=== PATIENT | female | born 1955 | race Caucasian/White ===

== ENCOUNTER 2020-01-29 16:09 | Emergency (ER) | payer BC ==
[2020-01-29 17:47] LABS: Albumin 3.8 g/dL (3.4-5.0); Bilirubin Total 0.3 mg/dL (0.2-1.0); Potassium 4.1 mmol/L (3.5-5.1); Protein, Total 7.6 g/dL (6.4-8.2)
[2020-01-29 17:59] LABS: Basophils % 0.4 % (0-1.3); Hematocrit 40.2 % (36.0-45.0); Lymphocytes % 23.2 % (15.3-44.8); MPV 8.8 fL (7.6-11.3); RBC Red Blood Cell Count 4.53 M/uL (3.86-4.86)
[2020-01-29 20:34] VITALS: TEMP 98
[2020-01-29 20:39] VITALS: O2SAT 100
[2020-01-29 20:40] VITALS: BP 132/73
--- OUTSIDE RECORDS SUMMARY | 2020-01-29 20:45 | XMS REPORT | Clinical Summary ---
:1955 Author Organization [facility] Address [address] [place] [address] Care Team Providers Name Role Phone Asked, No Pcp Primary Care Provider Unavailable Allergies No Known Allergies Medications Medication Sig Dispensed Refills Start Date End Date Status nifedipine 0.2% Apply 1 60 g 0 08/08/2019 Act wilda with lidocaine 5% application 0.2-0.5 % ointment topically 2 (two) times a day. Apply generously every morning and evening. atorvastatin 0 10/28/2019 Active (LIPITOR) 10 MG tablet SYNTHROID 150 mcg 0 10/28/2019 A ctive tablet DULoxetine 0 09/02/2019 Active (CYMBALTA) 30 MG capsule cetirizine (ZyrTEC) Take 10 mg by 0 Active 10 MG tablet mouth daily. acetaminophen Take 650 mg by 0 A ctive (TYLENOL 8 HOUR) mouth every 8 650 MG 8 hr tablet (eight) hours as needed for mild pain. irbesartan-hydrochl Take 1 tablet by 0 Active orothiazide mouth daily. (AVALIDE) 150-12.5 mg per tablet irbesartan (AVAPRO) Take 150 mg by 0 11/17 Discontinued 150 MG tablet mouth nightly. 0 Active Problems Problem Noted Date Fissure, anal 01/01/2020 Anal pain 08/08/2019 Bilateral lumbar radiculopathy Idiopathic progressive polyneuropathy Encounters Date Type Specialty Care Team Description 01/12/2020 Travel 01/05/2020 Travel 12/09/2019 Telemedicine Orthopedic Surgery Inocencio Pacheco is, cervical spine (Primary Dx); MD [facility] Lumbar stenosis with neurogenic claudication 12/03/2019 Travel 11/18/2019 Hospital Encounter Radiology Inocencio Pacheco Lumbar stenosis with MD [facility] neurogenic claudication 11/18/2019 Hospital Encounter Radiology Inocencio Pacheco, cervical MD [facility] spine 11/18/2019 Office Visit Orthopedic Surgery Inocencio Pacheco is, cervical spine (Primary Dx); MD [facility] Lumbar stenosis with neurogenic claudication 11/18/2019 Travel 11/10/2019 Travel 08/22/2019 Office Visit General Surgery Alex Gastelum MD Fissure, anal (Primary Dx) 08/08/2019 Office Visit General Surgery Alex Gastelum MD Anal lin n (Primary Dx) after 01/28/2019 Family History Medical History Relation Name Comments Heart attack Brother John Abad Cancer Brother Александр Abad Heart attack Father Mor Juarez Abad Heart attack Maternal Uncle several Heart disease Mother Mikki Khanr Stroke Paternal Aunt Minda Michaela Heart attack Paternal Grandfather Andi Abad Relation Name Status Comments Brother John Abad Brother Александр Abad Father AHenry Juarez Abad Maternal Uncle several Mother Barbaraa Abad Paternal Aunt Minda Michaela Paternal Grandfather Andi Abad Social History Tobacco Use Types Packs/Day Years Used Date Former Smoker Cigarettes 2 10 Quit: 03/03/19 86 Smokeless Tobacco: Never Used Alcohol Use Drinks/Week oz/Week Comments Never Sex Assigned at Date Recorded Female 01/11/2020 6:57 PM CDT Job Start Date Occupation Industry Not on file Not on file Not on file Travel History Travel Start Travel End No recent travel history available. COVID-19 Exposure Response Date Recorded In the last month, have you been in contact with No / Unsure 01/12/2020 10:49 AM CDT someone who was confirmed or suspected to have Coronavirus / COVID-19? Last Filed Vital Signs Not on file Plan of Treatment Health Maintenance Due Date Last Done Comments CERVICAL CANCER SCREENING 1976 BREAST CANCER SCREENING 2005 COLONOSCOPY SCREENING 2005 SHINGLES VACCINES (#1) 2005 INFLUENZA VACCINE 04/03/2020 Procedures Procedure Name Priority Date/Time Associated Diagnosis Comme nts EMG Routine 01/12/2020 12:25 Lumbar stenosis with Res ults for this PM CDT neurogenic procedure are i n claudication the results section. MRI LUMBAR SPINE WO Routine 11/18/2019 12:58 Lumbar stenosis w ith Results for this CONTRAST PM CDT neurogenic procedure are i n claudication the results section. MRI CERVICAL SPINE Routine 11/18/2019 12:34 Stenosis, cervical Results for this WO CONTRAST PM CDT spine procedure are i n the results section. after 01/28/2019 Results EMG General Request (01/12/2020 12:25 PM CDT) Impressions Performed At Ms. Ramirez complains of non-radicular lumbar pain when she walks and also complains of numbness in her bilateral f eet. Ms. Ramirez denies having diabetes. Ms. Ramirez is being evaluated for lumbar radiculopathy and neuropathy. 1) Peroneal and tibial motor latencies a nd velocities are bilaterally normal with small amplitudes (adipose ti ssue on bilateral legs). 2) Peroneal and tibial F Wave responses are bilaterally normal. 3) Sural and superficial peroneal sensor y responses are bilaterally absent. 4) Bilateral H Reflex Responses are equa l with very small amplitudes. 5) Intramuscular recordings of the legs suggest very mild chronic bilateral L5 denervation. The study suggests very mild chronic hellen ateral chronic L5 radiculopathy associated with severe sensory neuropath y. Fco Duong M.D. Narrative Performed At This result has an attachment that is no t available. NERVE CONDUCTION AND ELECTROMYOGRAPHY REPORT [facility] [place], [facility]-[address]th Floor; [place], [place] [address]; Teleph one [phone] Name: Analy Ramirez Date of Procedure: January 12, 2020 Location: [facility] Sex: Female Date of : 55 Referring Physician: Inocencio Pacheco M.D. FAX: Patient is 5 4 ; 265 lbs.; RL 31.3 C; LL 30.2 C Nerve Conduction (Latencies in msec, Amplitudes uV, Distance cm, Velocity M/Sec) Right Motor Nerves Dist. Lat. Prox lat. D. amp. P. Amp . Dist. Velocity Right Peroneal EDB 4.1 12.6 1.7 1.3 34.0 40.0 Right Tibial 4.2 13.8 6.9 2.9 36.5 37.7 Right Peroneal F Wave 47.8 Right Tibial F Wave 46.8 Right Sensory Nerves Dist. Lat. Prox lat. Dist. amp. Prox Amp. Distance Velocity Right Sural absent 14.0 Right Superficial Peroneal absent 12.0 Left Motor Nerves Dist. Lat. Prox lat. D. amp. P. Amp. Dist. Velocity Left Peroneal EDB 4.7 12.9 1.4 1.1 33.0 40.0 Left Tibial 4.7 14.3 4.2 2.3 35.8 37.0 Left Peroneal F Wave 49.0 Left Tibial F Wave 54.0 Left Sensory Nerves Dist. Lat. Prox lat. Dist. a mp. Prox Amp. Distance Velocity Left Sural absent 14.0 Left Superficial Peroneal absent 12.0 Right Soleus (H Reflex Response Latency): 33.5 msec (v milagro small amplitude) Left Soleus (H Reflex Response Latency): 33.7 msec ( very small amplitudes) Electromyography (Motor Unit in mV; H=High; L=Low; P=P olyphasic; NS=Non-specific) Right Leg Fibs. Pos. Waves Fasc. Polyphasia Motor Units Recruitment Vas. Medialis wnl wnl wnl wnl wnl wnl Ant. Tibialis wnl wnl wnl 20HP wnl NS Peroneus Longus wnl wnl wnl 20HP wnl NS Gastronemius wnl wnl wnl wnl wnl wnl Ext. Dig. Brevis wnl wnl wnl 20HP wnl NS Left Leg Fibs. Pos. Waves Fasc. Polyphasia M otor Units Recruitment Vas. Medialis wnl wnl wnl wnl wnl wnl Ant. Tibialis wnl wnl wnl 20HP wnl NS Peroneus Longus wnl wnl wnl 20HP wnl NS Gastronemius wnl wnl wnl wnl wnl wnl Ext. Dig. Brevis wnl wnl wnl 20HP wnl NS MRI Lumbar Spine Wo Contrast (11/18/2019 12:58 PM CDT) Specimen Narrative Performed At EXAMINATION: MRI LUMBAR SPINE WO CONTRAS T [facility] CLINICAL HISTORY: M48.062 Spinal stenosis lumbar reg ion with neurogenic claudication, PAIN COMPARISON: None TECHNIQUE: Multiplanar multisequence nonenhanced MRI e xamination was performed of the Lumbar spine. FINDINGS: There are 5 non-rib bearing lumbar type vertebrae. No fracture. 2 mm anterolisthesis L4 on L5, degenerative. No suspiciou s osseous lesions. Modic type I endplate change at L2-3. Conus medullaris terminates at the level of L1. Evaluation of the visualized soft tissues demonstrates no mass, adenopathy or aneurysm. Axial images through the disc spaces dem onstrate the following: L1-L2: Mild facet arthropathy without significant spin al canal, subarticular zone, or neural foraminal s tenosis. L2-L3: Moderate facet arthropathy ligament flavum info lding and small disc bulge contributes to moderate left subarticular z one and spinal canal stenosis as well as mild to moderate right subar ticular zone stenosis, mild to moderate left and mild right neural foraminal stenosis. L3-L4: Mild to moderate facet arthropathy without sign ificant spinal canal, subarticular zone, or neural fora hernandez stenosis. L4-L5: Severe facet arthropathy with degenerative grad e 1 anterolisthesis contributes to moderate to severe righ t and mild to moderate left subarticular zone stenosis, mild spinal canal stenosis, mild left and [id number] right shanita ral foraminal stenosis. There is contact and potential mild compress ion of the traversing right L5 nerve root. L5-S1: Moderate facet arthropathy without significant spinal canal, subarticular zone, or neural foraminal s tenosis. IMPRESSION: 1. Multilevel degenerative changes of the lumbar spine , most notably at L2-3 and L4-5 as detailed above. [id number] Procedure Note Hm Interface, Radiology Results Incoming - 11/18/2019 1:54 PM CDT EXAMINATION: MRI LUMBAR SPINE WO CONTRAST CLINICAL HISTORY: M48.062 Spinal stenosi s lumbar region with neurogenic claudication, PAIN COMPARISON: None TECHNIQUE: Multiplanar multisequence non enhanced MRI examination was performed of the Lumbar spine. FINDINGS: There are 5 non-rib bearing lumbar type vertebrae. No fracture. 2 mm anterolisthesis L4 on L5, degenerative. No suspicious osseous lesions. Modic type I endplate change at L2-3. Conus medullaris terminates at the level of L1. Evaluation of the visualized soft tissue s demonstrates no mass, adenopathy or aneurysm. Axial images through the disc spaces dem onstrate the following: L1-L2: Mild facet arthropathy without si gnificant spinal canal, subarticular zone, or neural foraminal stenosis. L2-L3: Moderate facet arthropathy ligame nt flavum infolding and small disc bulge contributes to moderate left subarticular zone and spinal canal stenosis as well as mild to moderate right subarticular zone stenosis, mild to moderate left and mild right neural foraminal stenosis. L3-L4: Mild to moderate facet arthropath y without significant spinal canal, subarticular zone, or neural foraminal stenosis. L4-L5: Severe facet arthropathy with deg enerative grade 1 anterolisthesis contributes to moderate to severe right and mild to moderate left subarticular zone stenosis, mild spinal canal stenosis, mild left and [id number] right neural foraminal stenosis. There is contact and potential mild compression of the traversing right L5 nerve root. L5-S1: Moderate facet arthropathy withou t significant spinal canal, subarticular zone, or neural foraminal stenosis. IMPRESSION: 1. Multilevel degenerative changes of th e lumbar spine, most notably at L2-3 and L4-5 as detailed above. [id number] Performing Organization Address City/State/Zipcode Phone Number [facility] [address] [place] [address] MRI Cervical Spine Wo Contrast (11/18/2019 12:34 PM CDT) Specimen Narrative Performed At This result has an attachment that is no t available. EXAMINATION: MRI CERVICAL SPINE WO CONTRAST [facility] CLINICAL HISTORY: M48.02 Spinal stenosis cervical re gion, PAIN COMPARISON: None TECHNIQUE: Multiplanar multisequence non contrast enhanced examination was performed of the cervical spine. FINDINGS: Vertebral body heights are maintained. N o focal marrow lesions or acure edema identified. Cervical alignment is preserved with nor mal lordosis. There is no significant spondylolisthesis. The cervicomedullary junction is unremar kable. No cord signal abnormality identified. The partially imaged posterior fossa is grossly intact . No gross masses are present in the visualized preverte bral soft tissues. Axial images through the disc spaces demonstrate the f ollowing: C1-C2: There is narrowing of the atlanto axial interval with spurring. There is no significant stenosis. C2-C3: There is a shallow posterior prot rusion minimally effacing the ventral thecal sac. The foramina are patent despite mild uncovertebral arthrosis and facet disease. C3-C4: There is disc desiccation and pos terior spondylosis and mild narrowing of the thecal sac to 8.5 mm. Uncovertebral arthrosis and facet disease results in severe left foraminal narrowing. There is abutment and distortion of the exiting left C4 nerve root. Correlate for a left C4 radiculopathy. The righ t foramen is patent. C4-C5: There is disc desiccation and bro ad-based posterior protrusion with mild to moderate narrowing of the thecal sac to 7.3 mm with some abutment of the cord without significant distortion or signal change. Uncovertebral arthrosis and facet disease results in moderate severe narrowing of the right foramen with effacement of perineural fat and abutment of the nerve root. There is also mild left foraminal narrowing. Correlate for a right C5 radiculopathy to determine significance. C5-C6: There is loss of disc height with disc bulge and a broad-based posterior protrusion measuring 2 mm. There is abutment and effacement of ventral cord with AP dimension the canal at 6.2 mm consiste nt moderate severe stenosis. There is some abutment and flattening of the ventral cord. Unco vertebral arthrosis and facet disease results in mild narrowing of the bilateral foramina. C6-C7: There is anterior fusion at this level. There is posterior spondylosis with mild effacement of thecal sac without significant stenosis. Uncovertebral arthrosis and facet disease results in no significant foraminal narrowing. C7-T1: There is posterior spondylosis wi thout canal narrowing. The foramina are patent. IMPRESSION: There is multilevel spondylosis most pro minent at C5-6 above the fusion where there is moderate severe canal narrowing and some abutment and effacement of the cord without signal change. There is also severe left-sided foramina l narrowing at C3-4 and moderate severe right foraminal narrowing at C4-5. Correlate for associated radiculopathies. [id number] Procedure Note Hm Interface, Radiology Results - 11/18/2019 1:14 PM CDT EXAMINATION: MRI CERVICAL SPINE WO CONTRAST CLINICAL HISTORY: M48.02 Spinal stenosis cervical region, PAIN COMPARISON: None TECHNIQUE: Multiplanar multisequence non contrast enhanced examination was performed of the cervical spine. FINDINGS: Vertebral body heights are maintained. N o focal marrow lesions or acure edema identified. Cervical alignment is preserved with nor mal lordosis. There is no significant spondylolisthesis. The cervicomedullary junction is unremar kable. No cord signal abnormality identified. The partially imaged posterior fossa is grossly intact. No gross masses are present in the visua lized prevertebral soft tissues. Axial images through the disc spaces dem onstrate the following: C1-C2: There is narrowing of the atlanto axial interval with spurring. There is no significant stenosis. C2-C3: There is a shallow posterior prot rusion minimally effacing the ventral thecal sac. The foramina are patent despite mild uncovertebral arthrosis and facet disease. C3-C4: There is disc desiccation and pos terior spondylosis and mild narrowing of the thecal sac to 8.5 mm. Uncovertebral arthrosis and facet disease results in severe left foraminal narrowing. There is abutment and distortion of the exiting left C4 nerve root. Correlate for a left C4 radiculop athy. The right foramen is patent. C4-C5: There is disc desiccation and bro ad-based posterior protrusion with mild to moderate narrowing of the thecal sac to 7.3 mm with some abutment of the cord without significant distortion or signal change. Uncovertebral arthrosis and facet disease results in moderate severe narrowing of the right foramen with effacement of perineural fat and abutment of the nerve root. There is also mild left foraminal narrowing. Correlate for a right C5 radiculopathy to determine significance. C5-C6: There is loss of disc height with disc bulge and a broad-based posterior protrusion measuring 2 mm. There is abutment and effacement of ventral cord with AP dimension the canal at 6.2 mm consistent moderate severe stenosis. There is some abutment and flattening of the ventral cord. Unco vertebral arthrosis and facet disease results in mild narrowing of the bilateral foramina. C6-C7: There is anterior fusion at this level. There is posterior spondylosis with mild effacement of thecal sac without significant stenosis. Uncovertebral arthrosis and facet disease results in no significant foraminal narrowing. C7-T1: There is posterior spondylosis wi thout canal narrowing. The foramina are patent. IMPRESSION: There is multilevel spondylosis most pro minent at C5-6 above the fusion where there is moderate severe canal narrowing and some abutment and effacement of the cord without signal change. There is also severe left-sided foramina l narrowing at C3-4 and moderate severe right foraminal narrowing at C4-5. Correlate for associated radiculopathies. [id number] Performing Organization Address City/State/Zipcode Phone Number [facility] [address] [place] [address] after 01/28/2019 Advance Directives For more information, please contact: [phone] Type Date Recorded Patient Computer Forensic Examiner Explanati on Advance Directives, Living Will and Medical Power of Real Estate Associate
--- OUTSIDE RECORDS SUMMARY | 2020-01-29 20:45 | XMS REPORT ---
:1955 Author Organization [facility] t Address [address] [place] [address] Care Team Providers Name Role Phone Asked, No Pcp Primary Care Physician Unavailable ROSAS Attending Clinician Unavailable Oriana MYERS Attending Clinician Payers Payer Name Policy Type Policy Number Effective Date Expiration Date S richelle BCBSBCBS xxxxxxxxxxxx 2019 [place] CHOICE 00:00:00 [facility] PPO/FEDERAL EMPL PPOxxxxxxxxxxx x1-Pre sentPPO Problems Condition Condition Condition Status Onset Resolution Last Treating Co mments Source Name Details Category Date Date Treatment Clinician Date Fissure, Fissure, Disease Active [place] anal anal 4-30 [facility] 00:00: st 00 Anal pain Anal pain Disease Active 2018-09 Rasheed ston 2-06 [facility] 00:00: st 00 Bilateral Bilateral Disease Active Rasheed ston lumbar lumbar Methodi radiculopa radiculopa st thy thy 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 Family History Family Member Diagnosis Comments Start Date Stop Date Source Natural brother Heart attack [facility] Natural brother Cancer Robert urban Natural father Heart attack Robert Mendoza Maternal uncle Heart attack [place] [facility] Natural mother Heart disease [place] [facility] Paternal aunt Stroke [place] Met pride Paternal grandfather Heart attack Ulysses Mendoza Social History Social Habit Start Date Stop Date Quantity Comments Source Sex Assigned At [facility] ethodist Exposure to Not sure [place] Metho dist SARS-CoV-2 (event) Cigarettes smoked 2019-11-18 2019-11-18 Robert Maceist current (pack per 00:00:00 00:00:00 day) - Reported Cigarette 2019-11-18 2019-11-18 Jones Method ist pack-years 00:00:00 00:00:00 Alcohol intake 2019-11-18 2019-11-18 Lifetime Robert Me thodist 00:00:00 00:00:00 non-drinker (finding) History of tobacco 1986-03-03 Current smoker Ulysses rasheed Orthodox use 00:00:00 Smoking Status Start Date Stop Date Source Former smoker 2019-11-18 00:00:00 2019-11-18 00:00:00 Robert Mendoza Medications Ordered Filled Start Stop Current Ordering Indication Dosage Frequency Signature Comments Components Source Medication Medication Date Date Medication? Clinician (SIG) Name Name cetirizine Yes 10mg QD Take 10 mg [place] (ZyrTEC) 10 3-17 by mouth Meth eitan MG tablet 11:10: daily. st 48 acetaminoph Yes 650mg Q8H Take 650 [place] en (TYLENOL 3-17 mg by Methodi 8 HOUR) 650 11:10: mouth st MG 8 hr 48 every 8 tablet (eight) hours as needed for mild pain. irbesartan- Yes 1{tbl} QD Take 1 [place] k[place] hydrochloro 3-17 tablet by Met oreilly thiazide 11:10: mouth st (AVALIDE) 48 daily. 150-12.5 mg per tablet irbesartan 2020- No 150mg QD Take 150 [place] (AVAPRO) 3-17 03-17 mg by Methodi 150 MG 11:10: 00:[address] tablet 48 :00 nightly. atorvastati Yes Geoffreyto n n (LIPITOR) 2-25 Methodi 10 MG 00:00: st tablet 00 SYNTHROID 2019- Yes Jones 150 mcg 2-25 Methodi tablet 00:00: st 00 DULoxetine 2018-09 Yes Jones (CYMBALTA) 2-31 Method[facility] 30 MG 00:00: st capsule 00 nifedipine 2018- Yes 1{appli Q.5D Apply 1 [place] 0.2% with 2-06 cation} applicatio M ethodi lidocaine 00:00: n st 5% 0.2-0.5 00 topically % ointment 2 (two) times a day. Apply generously every morning and evening. Procedures Procedure Date / Time Performed Performing Clinician Souralyson e EMG 2020-01-12 12:25:11 Daniela Pacheco M ethodist MRI LUMBAR SPINE WO 2019-11-18 12:58:00 Daniela Pacheco on [facility] CONTRAST MRI CERVICAL SPINE WO 2019-11-18 12:34:00 Daniela Pacheco ston [facility] CONTRAST Plan of Care Planned Activity Planned Date Details Comments Source Future Scheduled 2020-04-03 INFLUENZA VACCINE [place] [facility] Test 00:00:00 [code = INFLUENZA VACCINE] Future Scheduled 2005 BREAST CANCER [facility] thodist Test 00:00:00 SCREENING [code = BREAST CANCER SCREENING] Future Scheduled 2005 COLONOSCOPY SCREENING [facility] Test 00:00:00 [code = COLONOSCOPY SCREENING] Future Scheduled 2005 SHINGLES VACCINES [place] [facility] Test 00:00:00 (#1) [code = SHINGLES VACCINES (#1)] Future Scheduled 1976 Screening for [facility] thodist Test 00:00:00 malignant neoplasm of cervix (procedure) [code = 261283277] Encounters Start End Encounter Admission Attending Care Care Encounter Source Date/Time Date/Time Type Type Clinicians Facility Department ID 2020-01-12 2020-01-12 Outpatient ROSAS, [facility] [id number] [place] 00:00:00 00:00:00 DANIELA [address] 2019-12-09 2019-12-09 Outpatient ROSAS, [facility] [id number] [place] 00:00:00 00:00:00 DANIELA [address] 2019-11-18 2019-11-18 Outpatient ROSAS, [facility] [id number] [place] 00:00:00 00:00:00 DANIELA [address] 2019-11-18 2019-11-18 Outpatient ROSAS, [facility] [id number] [place] 00:00:00 00:00:00 DANIELA [address] 2019-11-18 2019-11-18 Outpatient ROSAS [facility] [id number] [place] 00:00:00 00:00:00 DANIELA Yanez [facility] st Results Test Description Test Time Test Comments Results Result Sour e Comments MRI Lumbar Spine 2019-11-02 Interface, [place] Wo Contrast 7 Radiology Results Method ist 13:51:03 - 11/18/2019 1:54 PM CDTEXAMINATION: MRI LUMBAR SPINE WO CONTRASTCLINICAL HISTORY: M48.062 Spinal stenosis lumbar region with neurogenic claudication, PAINCOMPARISON: NoneTECHNIQUE: Multiplanar multisequence nonenhanced MRI examination was performed of the Lumbar spine.FINDINGS: There are 5 non-rib bearing lumbar type vertebrae. No fracture. 2 mm anterolisthesis L4 on L5, degenerative. No suspicious osseous lesions. Modic type I endplate change at L2-3. Conus medullaris terminates at the level of L1. Evaluation of the visualized soft tissues demonstrates no mass, adenopathy or aneurysm. Axial images through the disc spaces demonstrate the following:L1-L2: Mild facet arthropathy without significant spinal canal, subarticular zone, or neural foraminal stenosis.L2-L3: Moderate facet arthropathy ligament flavum infolding and small disc bulge contributes to moderate left subarticular zone and spinal canal stenosis as well as mild to moderate right subarticular zone stenosis, mild to moderate left and mild right neural foraminal stenosis.L3-L4: Mild to moderate facet arthropathy without significant spinal canal, subarticular zone, or neural foraminal stenosis.L4-L5: Severe facet arthropathy with degenerative grade 1 anterolisthesis contributes to moderate to severe right and mild to moderate left subarticular zone stenosis, mild spinal canal stenosis, mild left and [id number] right neural foraminal stenosis. There is contact and potential mild compression of the traversing right L5 nerve root.L5-S1: Moderate facet arthropathy without significant spinal canal, subarticular zone, or neural foraminal stenosis.IMPRESSION: 1. Multilevel degenerative changes of the lumbar spine, most notably at L2-3 and L4-5 as detailed above.[id number] MRI Cervical 2019-11-02 Interface, [facility] Spine Wo [address] Contrast 13:11:35 - 11/18/2019 1:14 PM CDTEXAMINATION: MRI CERVICAL SPINE WO CONTRASTCLINICAL HISTORY: M48.02 Spinal stenosis cervical region, PAINCOMPARISON: NoneTECHNIQUE: Multiplanar multisequence noncontrast enhanced examination was performed of the cervical spine.FINDINGS:Verteb ral body heights are maintained. No focal marrow lesions or acure edema identified.Cervical alignment is preserved with normal lordosis. There is no significant spondylolisthesis.The cervicomedullary junction is unremarkable. No cord signal abnormality identified. The partially imaged posterior fossa is grossly intact.No gross masses are present in the visualized prevertebral soft tissues. Axial images through the disc spaces demonstrate the following:C1-C2: There is narrowing of the atlantoaxial interval with spurring. There is no significant stenosis.C2-C3: There is a shallow posterior protrusion minimally effacing the ventral thecal sac. The foramina are patent despite mild uncovertebral arthrosis and facet disease.C3-C4: There is disc desiccation and posterior spondylosis and mild narrowing of the thecal sac to 8.5 mm. Uncovertebral arthrosis and facet disease results in severe left foraminal narrowing. There is abutment and distortion of the exiting left C4 nerve root. Correlate for a left C4 radiculopathy. The right foramen is patent.C4-C5: There is disc desiccation and broad-based posterior protrusion with mild to moderate narrowing [...] for a right C5 radiculopathy to determine significance.C5-C6: There is loss of disc height with disc bulge and a broad-based posterior protrusion measuring 2 mm. There is abutment and effacement of ventral cord with AP dimension the canal at 6.2 mm consistent moderate severe stenosis. There is some abutment and flattening of the ventral cord. Uncovertebral arthrosis and facet disease results in mild narrowing of the bilateral foramina.C6-C7: There is anterior fusion at this level. There is posterior spondylosis with mild effacement of thecal sac without significant stenosis. Uncovertebral arthrosis and facet disease results in no significant foraminal narrowing.C7-T1: There is posterior spondylosis without canal narrowing. The foramina are patent.IMPRESSION: There is multilevel spondylosis most prominent at C5-6 above the fusion where there is moderate severe canal narrowing and some abutment and effacement of the cord without signal change. There is also severe left-sided foraminal narrowing at C3-4 and moderate severe right foraminal narrowing at C4-5. Correlate for associated radiculopathies.[facility]- [id number]
--- NOTE | 2020-02-02 16:18 | ER ---
Nurse's Notes [facility] Name: Analy Ramirez Age: 64 yrs Sex: Female : 1955 Arrival Date: 01/29/2020 Time: 16:12 Bed 19 Private MD: Diagnosis: Hypoglycemia, unspecified Presentation: 01/28 16:19 Chief complaint: Patient states: Low blood sugar today 44, then 56. Ate, drank juice. ll1 Weak and feels bad when sugar was low. Fingerstick 112 now. Coronavirus screen: Proceed with normal triage. Patient denies a cough. Patient denies shortness of breath or difficulty breathing. Patient denies measured and/or subjective temperature greater than 100.4F prior to today's visit. Patient denies travel on a cruise ship or to a country the [facility] currently lists as an affected area. Patient denies contact with known and/or suspected case of COVID-19. Ebola Screen: Patient denies travel to an Ebola-affected area in the 21 days before illness onset. Initial Sepsis Screen: Does the patient meet any 2 criteria? No. Patient's initial sepsis screen is negative. Does the patient have a suspected source of infection? No. Patient's initial sepsis screen is negative. Risk Assessment: Do you want to hurt yourself or someone else? Patient reports no desire to harm self or others. Onset of symptoms was January 29, 2020. 16:19 Method Of Arrival: Ambulatory ll1 16:19 Acuity: JULISA 3 ll1 Historical: - Allergies: 16:24 No Known Allergies; ll1 - PMHx: 16:24 Hypertension; High Cholesterol; ll1 - PSHx: 16:24 colon rectal CA, ileostomy reversal; Cholecystectomy; neck repair; Hernia repair; ll1 - Immunization history:: Flu vaccine is not up to date. - Social history:: Patient/guardian denies using alcohol, street drugs, tobacco products, Smoking status: Patient denies any tobacco usage or history of. Smoking status: Patient/guardian denies using tobacco, the patient reports quitting approximately 25 years ago. Screenin:30 Abuse screen: Denies threats or abuse. Denies injuries from another. Nutritional ca1 screening: No deficits noted. Tuberculosis screening: No symptoms or risk factors identified. Fall Risk IV access (20 points). Assessment: 16:30 General: Appears in no apparent distress. comfortable, Behavior is calm, cooperative, ca1 appropriate for age. Pain: Denies pain. Neuro: Level of Consciousness is awake, alert, obeys commands, Oriented to person, place, time, situation, Appropriate for age. Cardiovascular: Heart tones S1 S2 present Capillary refill < 3 seconds Patient's skin is warm and dry. Respiratory: Airway is patent Respiratory effort is even, unlabored, Respiratory pattern is regular, symmetrical, Breath sounds are clear bilaterally. GI: Abdomen is round non-distended, Bowel sounds present X 4 quads. Abd is soft and non tender X 4 quads. : No signs and/or symptoms were reported regarding the genitourinary system. EENT: No signs and/or symptoms were reported regarding the EENT system. Derm: Skin is intact, is healthy with good turgor, Skin is pink, warm \T\ dry. Musculoskeletal: Circulation, motion, and sensation intact. Capillary refill < 3 seconds. 17:21 Reassessment: Patient appears in no apparent distress at this time. Patient and/or ca1 family updated on plan of care and expected duration. Pain level reassessed. Patient is alert, oriented x 3, equal unlabored respirations, skin warm/dry/pink. 18:30 Reassessment: Patient appears in no apparent distress at this time. Patient and/or ca1 family updated on plan of care and expected duration. Pain level reassessed. Patient is alert, oriented x 3, equal unlabored respirations, skin warm/dry/pink. 19:37 Reassessment: Patient appears in no apparent distress at this time. Patient and/or ca1 family updated on plan of care and expected duration. Pain level reassessed. Patient is alert, oriented x 3, equal unlabored respirations, skin warm/dry/pink. 20:07 Reassessment: Sent 3 red top tubes for out patient labs: Insulin lever. C-peptide, ca1 sulfanuria level. Called lab. Order will be put on [employer] by lab. 20:26 Reassessment: Patient appears in no apparent distress at this time. Patient is alert, ca1 oriented x 3, equal unlabored respirations, skin warm/dry/pink. Vital Signs: 16:19 BP 159 / 89; Pulse 89; Resp 18; Temp 98.0; Pulse Ox 96% ; Weight 76.66 kg; Height 5 ft. ll1 4 in. (162.56 cm); Pain 1/10; 17:21 BP 134 / 75; Pulse 88; Resp 16 S; Pulse Ox 100% on R/A; ca1 17:28 BP 131 / 70; Pulse 82; Resp 16; Pulse Ox 100% ; mh5 18:30 BP 119 / 62; Pulse 80; Resp 17 S; Pulse Ox 99% on R/A; ca1 19:42 BP 125 / 76; Pulse 76; Resp 15 S; Pulse Ox 100% on R/A; ca1 20:26 BP 132 / 73; Pulse 81; Resp 16 S; Pulse Ox 100% on R/A; ca1 16:19 Body Mass Index 29.01 (76.66 kg, 162.56 cm) 1 ED Course: 16:12 Patient arrived in ED. bp1 16:22 Triage completed. 1 16:25 Arm band placed on Patient placed. 1 16:26 Alex Joiner PA is PHCP. [facility] 16:26 Dima Rider MD is Attending Physician. [facility] 16:29 Patient has correct armband on for positive identification. Placed in gown. Bed in low mh5 position. Call light in reach. Warm blanket given. Pulse ox on. NIBP on. 16:43 Meenakshi Gaytan RN is Primary Nurse. ca1 17:01 Initial lab(s) drawn, by me, sent to lab. Inserted saline lock: 22 gauge in right mh5 antecubital area, using aseptic technique. Blood collected. 17:01 CMP Sent. 5 17:01 CBC with Diff Sent. [facility] 19:44 No provider procedures requiring assistance completed. ca1 20:27 IV discontinued, intact, bleeding controlled, No redness/swelling at site. Pressure ca1 dressing applied. Administered Medications: No medications were administered Outcome: 20:15 Discharge ordered by . [facility] 20:27 Discharged to home ambulatory. ca1 20:27 Condition: stable 20:27 Discharge instructions given to patient, Instructed on discharge instructions, follow up and referral plans. Demonstrated understanding of instructions, follow-up care. 20:27 Patient left the ED. ca1 Signatures: Alex Joiner PA PA Alyce Bruno [facility] Meenakshi Gaytan RN RN ca1 Salinas Matthews RN RN [facility] Sanna Vincent bp1
--- NOTE | 2020-02-02 16:19 | EDPHYS ---
Physician Documentation [facility] Name: Analy Ramirez Age: 64 yrs Sex: Female : 1955 Arrival Date: 01/29/2020 Time: 16:12 Bed 19 Private MD: ED Physician Dima Rider HPI: 01/28 20:15 This 64 yrs old Female presents to ER via Ambulatory with complaints of Low jmm Blood Sugar. 20:15 The patient or guardian reports hypoglycemia. Onset: The symptoms/episode jmm began/occurred acutely, 1 week(s) ago. Associated signs and symptoms: Pertinent negatives: polydipsia, polyphagia, polyuria, vomiting. The patient has not experienced similar symptoms in the past. This is a 64 year old female with a history of htn, hlp that presents to the ED with multiple episodes of hypoglycemia beginning approx 1 week ago. Patient denies new medications. Patient states she was feeling weak and tested BGL which was as low as 44. Denies fever, denies abdominal pain. . Historical: - Allergies: 16:24 No Known Allergies; ll1 - PMHx: 16:24 Hypertension; High Cholesterol; ll1 - PSHx: 16:24 colon rectal CA, ileostomy reversal; Cholecystectomy; neck repair; Hernia repair; ll1 - Immunization history:: Flu vaccine is not up to date. - Social history:: Patient/guardian denies using alcohol, street drugs, tobacco products, Smoking status: Patient denies any tobacco usage or history of. Smoking status: Patient/guardian denies using tobacco, the patient reports quitting approximately 25 years ago. ROS: 20:15 Constitutional: Negative for fever, chills, and weight loss, Cardiovascular: Negative jmm for chest pain, palpitations, and edema, Respiratory: Negative for shortness of breath, cough, wheezing, and pleuritic chest pain, Abdomen/GI: Negative for abdominal pain, nausea, vomiting, diarrhea, and constipation, Back: Negative for injury and pain. 20:15 Neuro: Positive for weakness. 20:15 All other systems are negative. Exam: 20:15 Constitutional: This is a well developed, well nourished patient who is awake, alert, jmm and in no acute distress. Head/Face: atraumatic. Eyes: EOMI, no conjunctival erythema appreciated ENT: Moist Mucus Membranes Neck: Trachea midline, Supple Chest/axilla: Normal chest wall appearance and motion. Cardiovascular: Regular rate and rhythm. No edema appreciated Respiratory: Normal respirations, no respiratory distress appreciated Abdomen/GI: Non distended, soft Back: Normal ROM Skin: General appearance color normal MS/ Extremity: Moves all extremities, no obvious deformities appreciated, no edema noted to the lower extremities Neuro: Awake and alert, normal gait Psych: Behavior is normal, Mood is normal, Patient is cooperative and pleasant Vital Signs: 16:19 BP 159 / 89; Pulse 89; Resp 18; Temp 98.0; Pulse Ox 96% ; Weight 76.66 kg; Height 5 ft. ll1 4 in. (162.56 cm); Pain 1/10; 17:21 BP 134 / 75; Pulse 88; Resp 16 S; Pulse Ox 100% on R/A; ca1 17:28 BP 131 / 70; Pulse 82; Resp 16; Pulse Ox 100% ; mh5 18:30 BP 119 / 62; Pulse 80; Resp 17 S; Pulse Ox 99% on R/A; ca1 19:42 BP 125 / 76; Pulse 76; Resp 15 S; Pulse Ox 100% on R/A; ca1 20:26 BP 132 / 73; Pulse 81; Resp 16 S; Pulse Ox 100% on R/A; ca1 16:19 Body Mass Index 29.01 (76.66 kg, 162.56 cm) ll1 MDM: 16:34 Patient medically screened. [facility] 20:13 Data reviewed: vital signs, nurses notes. Counseling: I had a detailed discussion with dian the patient and/or guardian regarding: the historical points, exam findings, and any diagnostic results supporting the discharge/admit diagnosis, lab results, the need for outpatient follow up, to return to the emergency department if symptoms worsen or persist or if there are any questions or concerns that arise at home. ED course: Glucose levels have been stable in the ED. I discussed the patient with Dr. Lynne whom recommended send out labs. Patient given return precautions per Dr. Lynne's recommendation. Patient understood and agrees with the plan of care. . 01/28 16:28 Order name: CBC with Diff; Complete Time: 18:07 [facility] 01/28 16:28 Order name: CMP; Complete Time: 17:49 [facility] 01/28 16:38 Order name: Glucose, Ancillary Testing; Complete Time: 16:53 [facility] 01/28 17:12 Order name: Glucose, Ancillary Testing; Complete Time: 17:16 [facility] 01/28 19:14 Order name: Glucose, Ancillary Testing; Complete Time: 19:14 [facility] 01/28 20:17 Order name: C-Peptide [facility] 01/28 16:28 Order name: Saline Lock; Complete Time: 17:01 [facility] 01/28 18:45 Order name: Finger Stick; Complete Time: 19:08 [facility] 01/28 20:17 Order name: Miscellaneous Test Lab [facility] 01/28 20:17 Order name: Insulin [facility] Administered Medications: No medications were administered Disposition: 01/29/20 20:15 Discharged to Home. Impression: Hypoglycemia, unspecified. - Condition is Stable. - Discharge Instructions: Hypoglycemia. - Medication Reconciliation Form, Thank You Letter, Antibiotic Education, Prescription Opioid Use form. - Follow up: Private Physician; When: 2 - 3 days; Reason: Recheck today's complaints, Continuance of care, Re-evaluation by your physician. - Notes: Please bring all your prescriptions to your pharmacist to ensure they are the correct medications. please return to the emergency department if you are unable to get your Blood Glucose levels above 90. Addendum: 01/31/2020 07:56 Co-signature as Attending Physician, Dima Rider MD I agree with the assessment and k dr plan of care. Signatures: Dispatcher [employer] [facility] Dima Rider MD MD kdr Mickail, Joel, PA PA [facility] Meenakshi Gaytan RN RN ca1 Salinas Matthews RN RN ll1 Corrections: (The following items were deleted from the chart) 01/28 20:27 20:15 01/29/2020 20:15 Discharged to Home. Impression: Hypoglycemia, unspecified. ca1 Condition is Stable. Forms are Medication Reconciliation Form, Thank You Letter, Antibiotic Education, Prescription Opioid Use. Follow up: Private Physician; When: 2 - 3 days; Reason: Recheck today's complaints, Continuance of care, Re-evaluation by your physician. yenny
== END 2020-01-29 20:27 | disposition home or self-care (01) ==
LOC: ER 16:09
DX: E16.2 Hypoglycemia, unspecified (principal); I10 Essential (primary) hypertension
CPT/HCPCS: 36415; 80053; 82947; 83525; 84681; 85025; 99284